=== PATIENT | female | born 1990 | race Caucasian/White ===

== ENCOUNTER → 2019-01-28 | Outpatient (CLI) | payer OTHER ==
[~2019-01-28] MED LIST: ACETAMINOPHEN-1 EAC1 PO; BACTRIM DS TAB1 EACH PO; BENTYL 20 MG TA20 M1 PO; DARVOCET; DARVOCET-N 1001 EACH PO; ELAVIL; FLEXERIL PO; IBUPROFEN 800800 M1 PO; NOHOMEMEDICATIONS; NORCO 5-325 TA1 EACH PO; PHENERGAN 25 MG25 M1 PO; PHENERGAN 25 MG25 MG PO; PREDNISONE 20 M20 MG PO; PROTONIX40 M2 PO; ZOFRAN ODT4 MG PO
--- NOTE | 2019-02-04 07:55 | SLEEP ---
[facility] [address] [place] [address] SLEEP STUDY REPORT Name: MELVINA MOREAU Room: [facility]#: [id number] Admission: 01/28/19 Attend Phys: Latrell Leal Discharge: Date of : 89 Report #: [id number] THIS REPORT FOR: //name// CC: Cecilio Avery DO This study has been reviewed in its entirety by a board certified sleep specialist DATE OF SERVICE: 01/28/2019 ATTENDING PHYSICIAN: Dr. Cecilio Avery. The patient is a 29-year-old, who weighs 160 pounds with a BMI of 25.8. The patient's [place] score was 16. The patient underwent home sleep study performed by [facility]. Total recording time was 422 minutes. During the night study, the patient had 7 obstructive apneas, no central or obstructive apneas and no hypopneas. The patient's apnea-hypopnea index was only 1 per hour. Supine index 1 per hour. Nocturnal oximetry study revealed an average oxygen saturation of 95% with a lowest of 92%. Mean heart rate was 74 beats per minute with a maximum recorded 139 beats per minute, which is probably an artifact. IMPRESSION: 1. No clinically significant sleep disordered breathing. The patient's AHI for the entire night was only 1 per hour. 2. No clinically significant nocturnal hypoxia. RECOMMENDATIONS: 1. The patient does not meet the criteria for CPAP initiation. 2. The patient has [id number] subjective hypersomnia without any clinically significant sleep disordered breathing. Consider other differential diagnosis such as narcolepsy or idiopathic hypersomnia. Consider multiple sleep latency tests to rule out these possibilities if clinically indicated. 3. Avoid [employer] depressants. 4. Cautioned regarding driving until the patient's hypersomnia has resolved with the above recommendations. <ELECTRONICALLY SIGNED> By: Jeremiah Lama MD 02/04/19 [id number] Lama MD /nt
== END ==
LOC: M.SLEEPLAB 11:00
DX: G47.8 Other sleep disorders (principal); F51.01 Primary insomnia; F41.9 Anxiety disorder, unspecified; M79.10 Myalgia, unspecified site

== ENCOUNTER 2021-08-20 16:15 | Inpatient (IN) | payer OTHER ==
[~2021-08-20] VITALS: Ht 167.6 cm; Wt 68.0 kg
--- NOTE | ~2021-08-20 | PROC ---
[address] [address] PROCEDURE REPORT Name: MELVINA MOREAU Room: [address] M.R.#: [id number] Admission: 08/20/21 Attend Phys: Emeterio Wilder MD Discharge: 08/22/21 Date of : 89 Report #: [id number] THIS REPORT FOR: cc: Cecilio Avery Vincent R. DO [facility],Medical Records Staff ~ For GI report, please see the Provation report in Perceptive 7 content. By: [id number] Records Staff KEYUR /MARQUITA
[2021-08-20 16:23] VITALS: BP 104/74
[2021-08-20] MEDS ORDERED: BUSPIRONE HCL10 MG PO (16:25)
[2021-08-20] MEDS ORDERED: SAVELLA25 MG PO (16:26)
[2021-08-20 16:48] LABS: ABSOLUTE EOSINOPHILS 0.1 thou/uL (0.0-0.7); ABSOLUTE LYMPHOCYTES 1.7 thou/uL (0.8-5.3); ABSOLUTE MONOCYTES 0.5 thou/uL (0.0-1.2); ABSOLUTE NEUTROPHILS 3.6 thou/uL (1.6-8.1); BASOPHILS 0.4 %; HEMATOCRIT 45.1 % (37.0-47.0); HEMOGLOBIN 15.8 gm/dL (12.0-15.0); LYMPHOCYTES 28.5 %; MCH 30.9 pg (26.0-34.0); MCHC 35.1 g/dL (28.0-37.0); MCV 87.8 fL (80.0-100.0); MONOCYTES 8.2 %; MPV 9.3 fl. (7.2-11.1); NUCLEATED RBCS 0 /100WBC; PLATELET COUNT* 177 thou/uL (150-400); POLYS 61.9 %; RBC 5.14 mil/uL (4.20-5.00); RDW-CV 13.3 % (10.5-14.5); WBC 5.9 thou/uL (4.0-11.0)
[2021-08-20 16:59] LABS: CALCIUM 8.7 mg/dL (8.5-10.1); CREATININE 0.8 mg/dL (0.6-1.3); POTASSIUM 3.8 mmol/L (3.5-5.1)
[2021-08-20 17:03] LABS: ALBUMIN 4.2 g/dL (3.4-5.0); TOTAL BILIRUBIN 1.3 mg/dL (<0.1-1.0); TOTAL PROTEIN 7.5 g/dL (6.4-8.2)
[2021-08-20 17:04] LABS: URINE BILIRUBIN NEGATIVE (Negative); URINE BLOOD NEGATIVE (Negative); URINE CLARITY CLEAR; URINE COLOR YELLOW; URINE GLUCOSE-RANDOM NEGATIVE (Negative); URINE KETONES NEGATIVE (Negative); URINE LEUKOCYTES-REFLEX TRACE (Negative); URINE NITRITE-REFLEX NEGATIVE (Negative); URINE PROTEIN NEGATIVE (Negative); URINE UROBILINOGEN 0.2 E.U./dl (0.2-1.0)
[2021-08-20 17:19] LABS: BACTERIA-REFLEX 1-9 Few /HPF (None Seen); CASTS None Seen /LPF (None Seen); CRYSTALS None Seen /LPF (None Seen); SQUAMOUS 4-10 Moderate /LPF (0-3); URINE RBC 0-2 Rare /HPF (0-2); URINE WBC-REFLEX 0-5 Rare /HPF (0-5)
[2021-08-20 21:02] VITALS: BP 110/67
[2021-08-20 21:30] VITALS: BP 123/80
[2021-08-21 08:00] VITALS: BP 107/67
[2021-08-21 16:19] VITALS: BP 95/66
[2021-08-21 20:30] VITALS: BP 107/71
[2021-08-22 04:06] LABS: HEMATOCRIT 34.8 % (37.0-47.0); MCHC 35.3 g/dL (28.0-37.0); MCV 87.6 fL (80.0-100.0); MPV 9.6 fl. (7.2-11.1); RBC 3.97 mil/uL (4.20-5.00); WBC 4.6 thou/uL (4.0-11.0)
[2021-08-22 04:18] LABS: CREATININE 0.7 mg/dL (0.6-1.3); POTASSIUM 3.7 mmol/L (3.5-5.1)
[2021-08-22 04:20] LABS: HEMOGLOBIN 12.3 gm/dL (12.0-15.0)
[2021-08-22 08:00] VITALS: BP 102/55
[2021-08-22 17:35] VITALS: BP 121/74
[2021-08-22 18:16] VITALS: BP 121/74
== END 2021-08-22 19:00 | disposition home or self-care (01) | DRG 392 ==
LOC: M.ERS 16:15 → M.3W 19:34 → M.TBA-ER 19:34 → M.3W 21:15
PROVIDERS: Family Medicine; Nurse Practitioner Family; ADMIT Internal Medicine; ATTEND Internal Medicine
PROC: 0DBE8ZZ Excision of Large Intestine, Via Natural or Artificial Opening Endoscopic (ICD-10-PCS; principal; 2021-08-22)
PROC: 0DB68ZX Excision of Stomach, Via Natural or Artificial Opening Endoscopic, Diagnostic (ICD-10-PCS; principal; 2021-08-22)
PROC: 0DBB8ZX Excision of Ileum, Via Natural or Artificial Opening Endoscopic, Diagnostic (ICD-10-PCS; principal; 2021-08-22)
DX: K21.00 Gastro-esophageal reflux disease with esophagitis, without bleeding (principal); K56.7 Ileus, unspecified; K56.600 Partial intestinal obstruction, unspecified as to cause; K29.70 Gastritis, unspecified, without bleeding; K44.9 Diaphragmatic hernia without obstruction or gangrene; Z20.822 Contact with and (suspected) exposure to COVID-19; K64.8 Other hemorrhoids; K59.00 Constipation, unspecified; Z79.899 Other long term (current) drug therapy; K63.89 Other specified diseases of intestine; K52.9 Noninfective gastroenteritis and colitis, unspecified